=== PATIENT | male | born 1985 | race Caucasian/White ===

== ENCOUNTER 2017-06-30 12:07 | Emergency (ER) | payer SELFPAY ==
[~2017-06-30] VITALS: Ht 170.2 cm; Wt 80.3 kg
[2017-06-30 12:17] VITALS: BP 141/69; PULSE 90; RESP 18; TEMP 98.5; O2SAT 98
[2017-06-30] MEDS ORDERED: LORazepam 0.5 MG TAB PO ONE (12:45)
[2017-06-30] MEDS ORDERED: SODIUM CHLORIDE 0.9% FLUSH 10 ML FLUSH IVF PRN (12:45)
--- NOTE | 2017-06-30 12:51 | PD ---
HPI Chief Complaint: Dizziness Time Seen by Provider: 12:31 Travel History International Travel<30 days: No Contact w/Intl Traveler<30days: No Traveled to known affect area: No History of Present Illness HPI Patient is a 31-year-old male presents the emergency department for evaluation of feeling very nervous, burning behind his eyes, just feeling very anxious. 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 Patient states this happened to him once several years ago, states he was seen by emergency room physician and told everything was okay. Has no primary care physician. He is coming by his and his friend who state that he had a stressful event happen this morning but is unwilling to discuss this further. Denies any suicidal homicidal ideation. Denies any chest pain shortness of breath or palpitations PFSH Social History Tobacco Use: No Allergies-Medications (Allergen,Severity, Reaction): Coded Allergies: No Known Allergies (Verified Allergy, Unknown, 06/30/17) Review of Systems Except as stated in HPI: all other systems reviewed are Neg Physical Exam Narrative GENERAL: Well-developed, withdrawn but in no obvious distress SKIN: Focused skin assessment warm/dry. HEAD: Atraumatic. Normocephalic. EYES: Pupils equal and round. No scleral icterus. No injection or drainage. ENT: No nasal bleeding or discharge. Mucous membranes pink and moist. NECK: Trachea midline. No JVD. CARDIOVASCULAR: Regular rate and rhythm. No murmur appreciated. RESPIRATORY: No accessory muscle use. Clear to auscultation. Breath sounds equal bilaterally. GASTROINTESTINAL: Abdomen soft, non-tender, nondistended. Hepatic and splenic margins not palpable. MUSCULOSKELETAL: No obvious deformities. No clubbing. No cyanosis. No edema. NEUROLOGICAL: Awake and alert. No obvious cranial nerve deficits. Motor grossly within normal limits. Normal speech. PSYCHIATRIC: Appropriate mood and affect; insight and judgment normal. Data Data Last Documented VS Vital Signs Date Time Temp Pulse Resp B/P (MAP) Pulse Ox O2 Delivery O2 Flow Rate FiO2 06/30/17 16:26 06/30/17 15:56 64 18 97 Room Air 06/30/17 12:17 98.5 Orders Orders Electrocardiogram (06/30/17 12:41) Basic Metabolic Panel (Bmp) (06/30/17 12:41) Complete Blood Count With Diff (06/30/17 12:41) Ecg Monitoring (06/30/17 12:41) Iv Access Insert/Monitor (06/30/17 12:41) Oximetry (06/30/17 12:41) Sodium Chloride 0.9% Flush (Ns Flush) (06/30/17 12:45) Lorazepam (Ativan) (06/30/17 12:45) Ondansetron Inj (Zofran Inj) (06/30/17 13:00) Thyroid Stimulating Hormone (06/30/17 13:38) Diphenhydramine Inj (Benadryl Inj) (06/30/17 14:30) Metoclopramide Inj (Reglan Inj) (06/30/17 14:30) Ct Brain W/O Iv Contrast(Rout) (06/30/17 ) Ed Discharge Order (06/30/17 16:02) Labs Laboratory Tests Test 06/30/17 13:00 White Blood Count 7.4 TH/MM3 Red Blood Count 5.02 MIL/MM3 Hemoglobin 15.4 GM/DL Hematocrit 45.5 % Mean Corpuscular Volume 90.5 FL Mean Corpuscular Hemoglobin 30.8 PG Mean Corpuscular Hemoglobin Concent 34.0 % Red Cell Distribution Width 12.3 % Platelet Count 280 TH/MM3 Mean Platelet Volume 8.1 FL Neutrophils (%) (Auto) 74.0 % Lymphocytes (%) (Auto) 18.5 % Monocytes (%) (Auto) 5.4 % Eosinophils (%) (Auto) 0.6 % Basophils (%) (Auto) 1.5 % Neutrophils # (Auto) 5.5 TH/MM3 Lymphocytes # (Auto) 1.4 TH/MM3 Monocytes # (Auto) 0.4 TH/MM3 Eosinophils # (Auto) 0.0 TH/MM3 Basophils # (Auto) 0.1 TH/MM3 CBC Comment AUTO DIFF Differential Comment AUTO DIFF CONFIRMED Blood Urea Nitrogen 15 MG/DL Creatinine 0.82 MG/DL Random Glucose 115 MG/DL Calcium Level 9.1 MG/DL Sodium Level 137 MEQ/L Potassium Level 3.4 MEQ/L Chloride Level 104 MEQ/L Carbon Dioxide Level 23.1 MEQ/L Anion Gap 10 MEQ/L Estimat Glomerular Filtration Rate 111 ML/MIN Thyroid Stimulating Hormone 3rd Gen 0.787 uIU/ML MDM Medical Decision Making Medical Screen Exam Complete: Yes Emergency Medical Condition: Yes Differential Diagnosis Anxiety reaction, hyperthyroid, PE has been excluded by [facility] and per criteria, electrolyte abnormality, head injury, intracranial abnormality. Narrative Course Patient was room to the emergency department, his initial complaint of nervousness was addressed with Ativan, sometime after the Ativan he began planing of severe headache as well as some nausea, Benadryl and Reglan were given and on second reassessment the patient is feeling much better. A CT of his head was ordered which was negative. TSH negative, basic labs are also reassuring and an EKG showed normal sinus rhythm normal axis normal R-wave progression and no concerning ST segment changes. The patient was reassured, I discussed with him that he needs to follow-up with a primary care physician and he was given information on the [facility]. At this time there is no indication further workup or inpatient management. He is stable for discharge Diagnosis Primary Impression: Headache Disposition: 01 DISCHARGE HOME Condition: Stable Vitaliy Madsen MD Jun 30, 2017 12:51
[2017-06-30] MEDS ORDERED: ONDANSETRON HCL 4 MG/2 ML VIAL IV PUSH ONE (13:00)
[2017-06-30 13:19] LABS: AUTOMATED NEUTROPHIL # 5.5 TH/MM3 (1.8-7.7); BASOPHIL # 0.1 TH/MM3 (0-0.2); BASOPHIL % 1.5 % (0.0-2.0); EOSINOPHIL % 0.6 % (0.0-4.0); HEMATOCRIT 45.5 % (39.0-51.0); HEMOGLOBIN 15.4 GM/DL (13.0-17.0); LYMPH % 18.5 % (9.0-44.0); LYMPHOCYTE # 1.4 TH/MM3 (1.0-4.8); MEAN CELL VOLUME 90.5 FL (80.0-100.0); MEAN CORPUSCULAR HEMOGLOBIN 30.8 PG (27.0-34.0); MEAN PLATELET VOLUME 8.1 FL (7.0-11.0); MONO % 5.4 % (0.0-8.0); MONOCYTE # 0.4 TH/MM3 (0-0.9); PLATELET COUNT 280 TH/MM3 (150-450); RED BLOOD COUNT 5.02 MIL/MM3 (4.50-5.90); RED CELL DISTRIBUTION WIDTH 12.3 % (11.6-17.2); WHITE BLOOD COUNT 7.4 TH/MM3 (4.0-11.0)
[2017-06-30 13:29] LABS: CALCIUM 9.1 MG/DL (8.5-10.1)
[2017-06-30 13:30] LABS: BICARBONATE 23.1 MEQ/L (21.0-32.0)
[2017-06-30 13:32] VITALS: O2SAT 98
[2017-06-30 13:33] LABS: CREATININE 0.82 MG/DL (0.60-1.30)
[2017-06-30] MEDS ORDERED: METOCLOPRAMIDE HCL 10 MG/2 ML VIAL IV PUSH ONE (14:30)
[2017-06-30] MEDS ORDERED: diphenhydrAMINE HCL 50 MG/ML VIAL IV PUSH ONE (14:30)
--- NOTE | 2017-06-30 15:36 | RADRPT ---
EXAM DATE/TIME: 06/30/2017 15:26 [facility] COMPARISON: No previous studies available for comparison. INDICATIONS : Cephalgia, dizziness and nausea. RADIATION DOSE: 63.79 CTDIvol (mGy) MEDICAL HISTORY : None SURGICAL HISTORY : None. ENCOUNTER: Initial ACUITY: 1 day PAIN SCALE: 7/10 LOCATION: cranial TECHNIQUE: Multiple contiguous axial images were obtained of the head. Using automated exposure control and adj ustment of the mA and/or kV according to patient size, radiation dose was kept as low as reasonably a chievable to obtain optimal diagnostic quality images. DICOM format image data is available electro nically for review and comparison. FINDINGS: CEREBRUM: The ventricles are normal for age. No evidence of midline shift, mass lesion, hemorrhage or acute in farction. No extra-axial fluid collections are seen. POSTERIOR FOSSA: The cerebellum and brainstem are intact. The 4th ventricle is midline. The cerebellopontine angle i s unremarkable. EXTRACRANIAL: The visualized portion of the orbits is intact. SKULL: The calvaria is intact. No evidence of skull fracture. CONCLUSION: Normal examination. Chidi Bundy MD on June 30, 2017 at 15:35 Board Certified Radiologist. This report was verified electronically.
[2017-06-30 15:56] VITALS: BP 127/64; PULSE 64; RESP 18; O2SAT 97
--- NOTE | 2017-07-01 09:58 | EKG ---
Date Performed: 06/30/2017 Time Performed: 12:48:34 PTAGE: 31 years EKG: Sinus rhythm MODERATE INTRAVENTRICULAR CONDUCTION DELAY BORDERLINE ECG NO PREVIOUS TRACING DOCTOR: Salvador Carr Interpretating Date/Time 07/01/2017 09:57:18
== END 2017-06-30 16:28 | disposition home or self-care (01) ==
LOC: PHED 12:07
DX: R51 Headache (principal); R45.0 Nervousness
CPT/HCPCS: 70450; 80048; 84443; 85025; 93005; 96374; 96375; 99285; J1200; J2405; J2765